=== PATIENT | female | born 1965 | race Two or more races ===

== ENCOUNTER → 2017-02-06 | Outpatient (CLI) | payer MEDICAID | END | disposition home or self-care (01) | LOC: CFH 10:30 | PROVIDERS: ATTEND Obstetrics & Gynecology | DX: Z12.31 Encounter for screening mammogram for malignant neoplasm of breast (principal) | CPT/HCPCS: G0202 ==

== ENCOUNTER → 2018-07-30 | Outpatient (CLI) | payer MEDICAID | END | disposition home or self-care (01) | LOC: CFH 08:09 | PROVIDERS: ATTEND Obstetrics & Gynecology | DX: Z12.31 Encounter for screening mammogram for malignant neoplasm of breast (principal) | CPT/HCPCS: 77063; 77067 ==

== ENCOUNTER 2020-05-14 03:19 | Emergency (ER) | payer OTHER ==
[~2020-05-14] VITALS: Ht 162.6 cm; Wt 70.7 kg
--- NOTE | 2020-05-14 03:40 | NUR ---
Provider at bedside
[2020-05-14] MEDS ORDERED: IBUPROFEN 200 MG TABLET ONE (03:55)
[2020-05-14] MEDS ORDERED: IBUPROFEN 200 MG TABLET PO ONE (04:00)
--- NOTE | 2020-05-14 04:03 | NUR ---
A&o x4. Answering questions appropriately. C/o weakness, body aches, SOB with LÓPEZ, dry/nonproductive cough, subjective fevers at home, FRANKEL, decreased sense of smell x3 days. Sx worsening tonight. Unknown covid contact, states grandson was tested, results pending. Denies chest pain. Denies abd pain. (+) nausea, denies vomiting/diarrhea. No s/sx acute respiratory distress. No use of accessory muscles noted. Speaking in clear, full sentences. Placed on continuous O2/tele monitoring. NSR noted. O2 remains 92-93% RA. Bed low, side rails up, call lynne within reach
[2020-05-14 05:37] LABS: BASOPHILS % (AUTO) 0 % (0-1); EOSINOPHILS % (AUTO) 0 % (1-7); LYMPHOCYTES % (AUTO) 30 % (22-44); MEAN CORPUSCULAR HEMOGLOBIN 29.6 pg (27.0-34.8); MEAN CORPUSCULAR HGB CONC 33.5 g/dL (32.4-35.8); MEAN PLATELET VOLUME 9.4 fL (7.4-10.4); MONOCYTES % (AUTO) 10 % (2-9); NEUTROPHILS % (AUTO) 59 % (42-75); PLATELET COUNT 152 x10^3/uL (130-400); RED CELL DISTRIBUTION WIDTH 13.9 % (9.6-15.2)
[2020-05-14 05:44] LABS: ANION GAP 5 mmol/L (5-15); CALCIUM 8.8 mg/dL (8.5-10.1); CHLORIDE 109 mmol/L (98-107)
[2020-05-14 05:45] LABS: CREATININE 0.76 mg/dL (0.55-1.02)
[2020-05-14 05:57] LABS: MD NO
[2020-05-14] MEDS ORDERED: DEXAMETHASONE 4 MG TABLET PO ONE (06:30)
[2020-05-14] MEDS ORDERED: DEXAMETHASONE 4 MG TABLET ONE (06:39)
[2020-05-14 06:56] VITALS: BP 118/62
== END 2020-05-14 06:58 | disposition home or self-care (01) ==
LOC: ED 04:14
DX: U07.1 COVID-19 (principal); J12.9 Viral pneumonia, unspecified
CPT/HCPCS: 71045; 80048; 85025; 87635; 99284

== ENCOUNTER 2020-10-19 00:53 | Emergency (ER) | payer OTHER ==
[~2020-10-19] VITALS: Ht 162.6 cm; Wt 77.6 kg
--- NOTE | 2020-10-19 01:17 | NUR ---
PT HAS C/O NECK AND BACK PAIN AT FIRST THAT THEN TURNED TO C/P AND PRESURE, PT ALSO FEELS WEAKER THAN NORMAL OVER THE LAST COUPLE DAYS. Had covid in may. 1st covid vaccine 3 weeks ago (pzizer) No cardiac hx No hx of neck or back pain Placed on night monitor-vss Ecg in triage
--- NOTE | 2020-10-19 01:24 | NUR ---
TASK RN: LAB AT BEDSIDE FOR DRAW A THIS TIME.
[2020-10-19 01:35] LABS: BASOPHILS % (AUTO) 1 % (0-1); EOSINOPHILS % (AUTO) 2 % (1-7); LYMPHOCYTES % (AUTO) 43 % (22-44); MD NO; MEAN CORPUSCULAR HEMOGLOBIN 31.1 pg (27.0-34.8); MEAN CORPUSCULAR HGB CONC 34.5 g/dL (32.4-35.8); MEAN PLATELET VOLUME 9.3 fL (7.4-10.4); MONOCYTES % (AUTO) 14 % (2-9); NEUTROPHILS % (AUTO) 40 % (42-75); PLATELET COUNT 169 x10^3/uL (130-400); RED BLOOD COUNT 4.65 x10^6/uL (3.82-5.3); RED CELL DISTRIBUTION WIDTH 13.5 % (9.6-15.2)
[2020-10-19 01:47] LABS: ALANINE AMINOTRANSFERASE 43 U/L (12-78); ALBUMIN 3.5 g/dL (3.4-5.0); ANION GAP 6 mmol/L (5-15); CALCIUM 8.9 mg/dL (8.5-10.1); CHLORIDE 108 mmol/L (98-107); CREATININE 0.76 mg/dL (0.55-1.02)
[2020-10-19 01:57] LABS: ALKALINE PHOSPHATASE 73 U/L (45-117); BILIRUBIN,TOTAL 0.2 mg/dL (0.2-1.0); TOTAL PROTEIN 6.9 g/dL (6.4-8.2); TROPONIN I < 0.015 ng/mL (0.000-0.045)
--- NOTE | 2020-10-19 02:18 | NUR ---
RADIOLOGY CALLED TO EXPEDITE CXR READ-SENIOR TAX MANAGER TO REACH OUT TO RADIOLOGIST
[2020-10-19 02:54] VITALS: BP 114/40
--- NOTE | 2020-10-19 02:54 | NUR ---
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
== END 2020-10-19 02:58 | disposition home or self-care (01) ==
LOC: ED 02:52
DX: R07.89 Other chest pain (principal); M06.9 Rheumatoid arthritis, unspecified
CPT/HCPCS: 36415; 71045; 80053; 84443; 84484; 85025; 93005; 99285